=== PATIENT | male | born 1990 | race Caucasian/White ===

== ENCOUNTER 2025-04-28 13:29 | Outpatient (AMB) | payer OTHER, SELFPAY ==
--- NOTE | 2025-04-28 13:32 | MHC.PC.OV ---
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 Accompanied by: Self / Same As Patient Allergies No Known Allergies Allergy (Verified 04/28/25 13:44) Medication List - Last Reconciled 04/28/25 by Alicia Loera PA-C No Known Home Meds Tobacco use date assessed: 04/28/25 Dental Screening Dental Screen Date: 04/28/25 Did you have a dental visit in the last 12 months?: Yes Did you have a dental problem in the last 6 months where you did not have access to dental care?: No Was dental information given to patient?: Patient has dentist HPI HPI Comments History of Present Illness Details History of Present Illness The patient is a 35 year old male presenting for a new patient physical exam with concerns about high blood pressure and recent weight gain. He has not seen a primary care provider in years. He reports feeling like his blood pressure is high, particularly during stressful moments where he feels like he is going to explode . He notes these episodes can be associated with some chest discomfort and shortness of breath, which resolve with deep breaths. He attributes these feelings to stress and acknowledges it feels like anxiety. He notes his blood pressure can fluctuate; in the past, after an initial high reading, it would normalize after a few minutes of rest. Approximately four months ago, he switched from a very physical job at [employer], where he was walking constantly, to a desk job. Since this change, he has gained weight. His father has a history of hypertension and high cholesterol for which he takes medication, but has no history of myocardial infarction or stroke. There is no family history of cancer. He is with three children and reports lack of sleep due to a new baby. He has a pre-appointment for a vasectomy scheduled. He recently had dental work including veneers and plans to return to regular dental visits. Social History - Employment: He recently changed jobs from a physically demanding role at [employer] to a desk job. - Family status: He is with three children, ages nine, seven, and seven months. - Family planning: He reports he and his were not preventing and he now has an upcoming pre-appointment for a vasectomy. - Exercise: His physical activity level has decreased significantly since changing from a walking-intensive job to a sedentary desk job. - Habits: He reports a lack of sleep due to having a new baby. [facility] Medical History (Updated 04/28/25 @ 14:09 by Alicia Loera PA-C) Preventative health care Anxiety Annual physical exam Obesity, Class I, BMI 30-34.9 Hypertension Family History Father BP (high blood pressure) Mother No problems noted. Social History Housing: House Alcohol intake: current Alcohol intake frequency: a few times a week Patient Tobacco Use Status: Never used Tobacco service: No Current occupational status: employed Cognitive needs: No Hearing needs: No Vision needs: No Questionnaire PHQ-9 Over the last 2 weeks, how often have you been bothered by any of the following problems? 1. Little interest or pleasure in doing things: not at all 2. Feeling down, depressed, or hopeless: not at all 3. Trouble falling or staying asleep, or sleeping too much: not at all 4. Feeling tired or having little energy: not at all 5. Poor appetite or overeating: not at all 6. Feeling bad about yourself - or that you are a failure or have let yourself or your family down: not at all 7. Trouble concentrating on things, such as reading the newspaper or watching television: not at all 8. Moving or speaking so slowly that other people could have noticed. Or the opposite - being so fidgety or restless that you have been moving around a lot more than usual: not at all 9. Thoughts that you would be better off or of hurting yourself in some way: not at all Total score: 0 Depression Screening Interpretation: Negative Depression Screening Done: Yes 64071 - PHQ-9 Billing: Yes Source: Developed by Drs. Kana Umana, Mary Bowman, Rudy Hawkins and colleagues, with an educational damián from [employer]. Thrive Questionnaire Date Thrive assessed: 04/28/25 I am a: Patient What is your living situation today?: I have a steady place to live Within the past 12 months, did the food you bought not last and you didn't have the money to get more?: Never true Within the past 12 months, did you worry whether your food would run out before you got money to buy more?: Never true Do you have trouble paying for medicines?: No Do you have trouble getting transportation to medical appointments?: No Do you have trouble paying your heating and electricity bill?: No Do you have trouble taking care of your child, family member or friend?: No Do you have trouble with day-to-day activities such as bathing, preparing meals, shopping, managing finances, etc.?: No Are you currently unemployed and looking for a job?: No Are you interested in more education?: No Please select the resources that you would like help with: None THRIVE Score: 0 AUDIT C Alcohol Use Questionnaire (AUDIT-C) 1. How often do you have a drink containing alcohol?: 2-3 times a week 2. How many drinks containing alcohol do you have on a typical day when you are drinking?: 1 or 2 3. How often do you have six or more drinks on one occasion?: Never Total Score: 3 Score Reviewed/Action Taken: No ILENE-7 AMB Questionnaire ILENE-7 Date ILENE - 7 assessed: 04/28/25 Feeling nervous, anxious, or on edge: 0 = Not at all Not being able to stop or control worryin = Not at all Worrying too much about different things: 0 = Not at all Trouble relaxin = Not at all Being so restless that it is hard to sit still: 0 = Not at all Becoming easily annoyed or irritable: 0 = Not at all Feeling afraid as if something awful might happen: 0 = Not at all Total ILENE-7 score (0-4 normal; 5-9 mild; 10-14 moderate; 15-21 severe): 0 Source: Developed by Drs. Kana Umana, Mary Bowman, Rudy Hawkins and colleagues, with an educational damián from [employer]. ILENE-7 Assessment Billing ILENE-7 Assessment Tool: ILENE-7 Assessment 46437 Review of Systems Narrative Review of Systems - Constitutional: Reports weight gain and feeling of high blood pressure. - Cardiovascular: Denies chest pain or shortness of breath at rest, but reports some chest tightness at the peak of stressful moments. - Psychological: Reports feeling stress and anxiety, with moments of feeling like he might explode . - HEENT: Denies trouble hearing or seeing. - Gastrointestinal: Denies black or bloody stools and chronic abdominal pain. Const All systems reviewed & are unremarkable except as noted in HPI and below Physical exam (Primary Care) Vital Signs: Last Vital Signs Temp 97.6 F 04/28/25 13:39 Pulse 70 04/28/25 13:39 Resp 14 04/28/25 13:39 BP 143/81 H 04/28/25 13:39 Pulse Ox 99 04/28/25 13:39 Oxygen Delivery Method Room Air 04/28/25 13:39 Care Plan Goal for BP management: <140/90 patient will be started on 10 mg of lisinopril and return in 1 month with blood pressure diary/check BMI result Body Mass Index 30.4 BMI Assessment/Plan discussion: High BMI High, discussed plan: lifestyle, weight reduction, dietary, physical activity, alcohol moderation and other Tobacco/Smoking Status: Tobacco use Status Tobacco use date assessed 04/28/25 04/28/25 13:42 Patient Tobacco Use Status Never used Tobacco 04/28/25 13:42 PHQ-9: PHQ-9 Score PHQ-9: Total score 0 04/28/25 13:42 Depression Screening Interpretation: Negative Thrive Assessment: Date of Thrive Assessment Date Thrive assessed 04/28/25 04/28/25 13:42 Narrative Physical Exam Appearance: Alert. Oriented X3. No acute distress. Head: Normal external exam. Normocephalic. Atraumatic. Eyes: Pupils are equal, round, and reactive to light. Extraocular movements intact. Conjunctiva and sclera normal. Eyelids normal. Ears: External auditory canal normal. Tympanic membranes normal. Throat: Pharynx normal. Uvula midline. Moist mucous membranes. Neck: Normal inspection. Neck supple. Full range of motion. No adenopathy. Thyroid Normal. No meningeal signs. No neck mass noted. Cardiovascular: Normal heart rate and rhythm. Heart sound normal. No murmurs noted. Pulses normal throughout. Respiratory: No respiratory distress. Painless inspiration. Breath sounds normal. No wheezes/rales/rhonchi noted. Chest nontender. No accessory muscle usage noted or decreased air movement noted. Abdomen: Soft and nontender. Bowel sounds normal in all 4 quadrants. No distention noted. No organomegaly noted. No visible injury noted. Back: No costovertebral angle tenderness. Full range of motion noted. Skin: Skin warm and dry. Normal skin color. Normal skin turgor. No rashes/lesions/lacerations noted. Extremities: No lower extremity edema. Extremities exhibit normal range of motion. Extremities nontender. Neuro: Oriented X 3. No motor deficit. No sensory deficit. Reflexes normal. Coding Level of Care Code New Pt Prev Care 18-39yr(86191 Add On Preventative Visit Only Diagnoses Annual physical exam Z00.00 Hypertension I10 Obesity, Class I, BMI 30-34.9 E66.811 Anxiety F41.9 Preventative health care Z00.00 Additional Codes PHQ-9 - 84076 - PHQ-9 Billing: Yes ([id number]) ILENE-7 Assessment Billing - ILENE-7 Assessment Tool: ILENE-7 Assessment 73273 ([id number]) Time Spent (min) 60 Assessment & Plan Assessment & Plan (1) Annual physical exam: Code(s): Z00.00 - Encounter for general adult medical examination without abnormal findings Category: Medical (2) Hypertension: Code(s): I10 - Essential (primary) hypertension Category: Medical Plan: The patient's blood pressure was high during the visit. He agrees to start a low-dose blood pressure medication. A prescription for lisinopril 10 mg daily will be sent to his pharmacy. He was counseled on potential side effects, including the rare risk of angioedema (lip/tongue swelling), which would be a medical emergency, and the more common side effect of a cough. He was instructed to monitor his blood pressure at home 2-3 hours after taking the medication to ensure it is effective. A prescription for a blood pressure cuff will be provided. He was also given information on dietary modifications to help lower blood pressure naturally. He will follow up in one month to reassess his blood pressure. (3) Obesity, Class I, BMI 30-34.9: Code(s): E66.811 - Obesity, class 1 Category: Medical Plan: Patient to improve diet and exercise regimen. Condition is chronic and stable continue to monitor. (4) Anxiety: Code(s): F41.9 - Anxiety disorder, unspecified Category: Medical Plan: The patient reports significant stress and feelings of anxiety, which he feels contribute to his elevated blood pressure. Management will focus on blood pressure control and lifestyle modifications, with re-evaluation at his one-month follow-up. (5) Preventative health care: Code(s): Z00.00 - Encounter for general adult medical examination without abnormal findings Category: Medical Plan: Comprehensive lab work was ordered, including a CBC, CMP, inflammatory markers, liver function tests, lipid panel, magnesium, urinalysis, vitamin B12, vitamin D, thyroid studies, PSA, and a hemoglobin A1c. The patient was instructed to be fasting for 10-12 hours prior to the blood draw. He was advised on colon cancer screening, which typically starts at age 40-45, and options such as colonoscopy and Cologuard were discussed. The patient will follow up in one month to review lab results and his blood pressure response to medication. Plan Plan Patient was informed and verbally consented to the use of an ambient scribe for clinic note documentation during this visit. 1. Essential Hypertension The patient's blood pressure was high during the visit. He agrees to start a low-dose blood pressure medication. A prescription for lisinopril 10 mg daily will be sent to his pharmacy. He was counseled on potential side effects, including the rare risk of angioedema (lip/tongue swelling), which would be a medical emergency, and the more common side effect of a cough. He was instructed to monitor his blood pressure at home 2-3 hours after taking the medication to ensure it is effective. A prescription for a blood pressure cuff will be provided. He was also given information on dietary modifications to help lower blood pressure naturally. He will follow up in one month to reassess his blood pressure. 2. Preventative Care Comprehensive lab work was ordered, including a CBC, CMP, inflammatory markers, liver function tests, lipid panel, magnesium, urinalysis, vitamin B12, vitamin D, thyroid studies, PSA, and a hemoglobin A1c. The patient was instructed to be fasting for 10-12 hours prior to the blood draw. He was advised on colon cancer screening, which typically starts at age 40-45, and options such as colonoscopy and Cologuard were discussed. The patient will follow up in one month to review lab results and his blood pressure response to medication. 3. Anxiety The patient reports significant stress and feelings of anxiety, which he feels contribute to his elevated blood pressure. Management will focus on blood pressure control and lifestyle modifications, with re-evaluation at his one-month follow-up. Discussion Notes I educated the patient on his elevated blood pressure and the rationale for initiating lisinopril 10 mg daily. We discussed the benefits of the medication, primarily in reducing his blood pressure to prevent long-term cardiovascular complications. I informed him about the potential side effects, highlighting the rare but serious risk of angioedema, which would require an immediate 911 call, and the more common side effect of a dry cough, for which he should contact me if it becomes bothersome. I also provided instructions for home blood pressure monitoring to assess the medication's efficacy and information on natural dietary approaches to improve blood pressure. I explained the panel of labs ordered to provide a comprehensive baseline of his health, including checks for cholesterol, diabetes risk, and prostate cancer screening. We briefly discussed future colon cancer screening guidelines, noting that he is currently young but outlining options like colonoscopy and Cologuard for when he reaches the appropriate age. We agreed on a follow-up appointment in one month to review his lab results and blood pressure log. Orders: Orders C Reactive Protein Today Z00.00 - Encounter for general adult medical examination without abnormal findings Complete Blood Count Auto Diff Today Z00.00 - Encounter for general adult medical examination without abnormal findings Erythrocyte Sedimentation Rate Today Z00.00 - Encounter for general adult medical examination without abnormal findings UA CC w/rflx Micro + Cult Today Z00.00 - Encounter for general adult medical examination without abnormal findings Vitamin B12 and Folate Today Z00.00 - Encounter for general adult medical examination without abnormal findings TSH reflex Free T4 Today Z00.00 - Encounter for general adult medical examination without abnormal findings PSA,Total (Free>4and<10) Today Z00.00 - Encounter for general adult medical examination without abnormal findings Comprehensive Fosters. Panel Fast Today Z00.00 - Encounter for general adult medical examination without abnormal findings Lipid Panel Today Z00.00 - Encounter for general adult medical examination without abnormal findings Magnesium Today Z00.00 - Encounter for general adult medical examination without abnormal findings Microalbumin, Random (w Creat) Today E11.9 - Type 2 diabetes mellitus without complications Vitamin D 25-OH Total Today Z00.00 - Encounter for general adult medical examination without abnormal findings Hemoglobin A1c Today Z00.00 - Encounter for general adult medical examination without abnormal findings Medications: New lisinopril 10 mg PO DAILY 90 tabs 3RF blood pressure test kit-large check BP daily 1 ea 0RF I10 - Essential (primary) hypertension Patient Instructions: Patient Instructions - Take lisinopril 10 mg by mouth once daily for your high blood pressure. - If you experience any swelling of your lips or tongue, call 911 immediately as this could be a serious allergic reaction. - If you develop a persistent dry cough, please contact our office as we may need to change your medication. - Please obtain a blood pressure cuff. Check your blood pressure two to three hours after taking lisinopril and keep a written log of the readings to bring to your next appointment. - Please go for the ordered blood work at a local lab. You must fast (nothing to eat or drink except water or black coffee with no cream/sugar) for 10-12 hours before the test. - Please try to get your blood work done this week so we can discuss the results at your next visit. - Follow up in our office in one month to check on your blood pressure and review test results.
[2025-04-28 13:39] VITALS: BP 143/81; PULSE 70; RESP 14; TEMP 36.4; O2SAT 99; BMI 30.4
== END 2025-04-28 14:04 | disposition home or self-care (01) ==
PROVIDERS: PCP Physician Assistant Medical; Visit Provider Physician Assistant Medical
DX: Z00.00 Encounter for general adult medical examination without abnormal findings (principal); I10 Essential (primary) hypertension; E66.811 Obesity, class 1; F41.9 Anxiety disorder, unspecified

== ENCOUNTER → 2025-04-28 13:29 | Outpatient (BNVA) | payer OTHER, SELFPAY | PROVIDERS: PCP Internal Medicine; Visit Provider Internal Medicine | DX: Z00.00 Encounter for general adult medical examination without abnormal findings (principal); I10 Essential (primary) hypertension; E66.811 Obesity, class 1; F41.9 Anxiety disorder, unspecified; Z68.30 Body mass index [BMI] 30.0-30.9, adult | CPT/HCPCS: 96127 ==

== ENCOUNTER 2025-05-14 06:37 | Outpatient (REF) | payer OTHER, SELFPAY ==
[2025-05-14 10:21] LABS: MANUAL DIFF FLAG NO
[2025-05-14 10:25] LABS: Hematocrit 50.0 % (42.0-52.0); Hemoglobin 16.8 g/dl (14.0-18.0); Imm Gran Abs Auto 0.03 X10*3/uL (0.00-0.03); Imm Gran Pct Auto 0.4 % (0.0-0.4); Lymphocytes Absolute Auto 2.7 X10*3/uL (1.2-4.9); Mean Corpuscular HGB Conc 33.6 g/dl (31.0-36.0); Mean Corpuscular Hemoglobin 30.5 pg (27.0-33.0); Mean Corpuscular Volume 90.7 fL (80.0-98.0); NRBC Abs Auto 0.000 X10*3/uL (0.0-0.012); NRBC Pct Auto 0.0 /100WBC (0.0-0.2); Platelet Count 249 X10*3/uL (160-400); Red Blood Count 5.51 X10*6/uL (4.60-5.80); White Blood Count 7.8 X10*3/uL (4.8-10.8)
[2025-05-14 10:36] LABS: Appearance Urine Cloudy; Glucose Urine UA Negative (Negative); PH 5.5 (5.0-9.0); Specific Gravity - Urine 1.025 (1.005-1.025)
[2025-05-14 10:40] LABS: Microalbum/Creatinine Ratio Ur 3.2 ug/mg cr (<30)
[2025-05-14 10:48] LABS: Alanine Aminotransferase 68 U/L (0-40); Albumin Level 4.8 g/dL (3.5-5.0); Alkaline Phosphatase 55 U/L (39-117); Anion Gap 11 (12-20); Aspartate Amino Transferase 43 U/L (5-37); Blood Urea Nitrogen 14 mg/dL (9-16); Calcium 9.9 mg/dL (8.4-10.2); Carbon Dioxide 28 mmol/L (22-29); Chloride 106 mmol/L (96-108); Cholesterol 234 mg/dL (<200); Estimated Glomerular Filt Rate > 60; HDL Cholesterol 43 mg/dL (>40); Magnesium 2.4 mg/dL (1.6-2.6); Potassium 4.2 mmol/L (3.3-5.1); Sodium 141 mmol/L (135-145); Total Protein 7.3 g/dL (6.5-8.0); Triglycerides 149 mg/dL (<150)
[2025-05-14 10:56] LABS: PSA,Total (Free>4and<10) 0.76 ng/mL (0.00-4.00)
[2025-05-14 11:10] LABS: Folate 10.8 ng/mL (> or = 4.0); Vitamin B12 462 pg/mL (200-900)
== END 2025-05-14 06:38 | disposition home or self-care (01) ==
LOC: HO.HMGCLDS 06:37
PROVIDERS: PCP Physician Assistant Medical; Visit Provider Physician Assistant Medical
DX: Z00.00 Encounter for general adult medical examination without abnormal findings (principal); E11.9 Type 2 diabetes mellitus without complications; Z12.5 Encounter for screening for malignant neoplasm of prostate; Z13.21 Encounter for screening for nutritional disorder
CPT/HCPCS: 36415; 80053; 80061; 81003; 82043; 82306; 82570; 82607; 82746; 83036; 83735; 84153; 84443; 85025; 85652; 86140